=== PATIENT | female | born 1930 | race Caucasian/White ===

== ENCOUNTER 2017-08-20 16:55 | Emergency (ER) | payer MEDICARE, BC ==
--- NOTE | 2017-08-20 17:58 | EDM.PDOC ---
ED HPI GENERAL MEDICAL PROBLEM - General Chief Complaint: General Stated Complaint: right hip pain Time Seen by Provider: 08/20/17 17:30 Source of Information: Reports: Patient, EMS, RN History Limitations: Reports: No Limitations - History of Present Illness INITIAL COMMENTS - FREE TEXT/NARRATIVE: States that she was at the [facility] this afternoon and sat for about 2 hours without getting up. When she did get up she had pain in the back of her right leg. She had difficulty walking but did drive herself home and sat in her chair and then wasn't able to get out of chair. She called ambulance who brought her here to be evaluated. She was not able to move her right leg without increase in significant pain to the posterior medial thigh. No redness , warmth or swelling to the area. She denies any injury or slips. Was fine when she arrived at the [facility]. Onset: Sudden Location: Reports: Lower Extremity, Right Quality: Reports: Sharp Improves with: Reports: Rest Worsens with: Reports: Movement Associated Symptoms: Reports: No Other Symptoms - Related Data Allergies Allergy/AdvReac Type Severity Reaction Status Date / Time shellfish derived Allergy Rash Verified 08/20/17 17:05 Home Meds: Home Meds Aspirin [Esther Chewable Aspirin] 1 tab PO DAILY 07/23/14 [History] Simvastatin [Zocor] 10 mg PO DAILY 07/23/14 [History] Verapamil [Calan SR] 1 tab PO BEDTIME 07/23/14 [History] Past Medical History Cardiovascular History: Reports: Hypertension Social & Family History - Family History Family Medical History: Noncontributory - Tobacco Use Smoking Status *Q: Never Smoker - Living Situation & Occupation Living situation: Reports: , Alone Occupation: Retired ED ROS GENERAL - Review of Systems Review Of Systems: See Below Constitutional: Reports: No Symptoms HEENT: Reports: No Symptoms Respiratory: Reports: No Symptoms Cardiovascular: Reports: No Symptoms GI/Abdominal: Reports: No Symptoms : Reports: No Symptoms Musculoskeletal: Reports: Leg Pain Skin: Reports: No Symptoms Neurological: Reports: No Symptoms ED EXAM, GENERAL - Physical Exam Exam: See Below Exam Limited By: No Limitations General Appearance: Alert, WD/WN, Moderate Distress Respiratory/Chest: No Respiratory Distress, Lungs Clear, Normal Breath Sounds Cardiovascular: Regular Rate, Rhythm, No Edema Extremities: Normal Inspection, Normal Range of Motion, No Pedal Edema, Normal Capillary Refill, Leg Pain (in the posterior medial area. This does get worse with palpation of the area. With gentil ROM I'm able to go through full ROM with increase in pain only when hip is flexed and leg extended fully. Prior to that she wasn't able to move it at all without significant pain. We did get her up to stand and was able to but would have some pain to the posterior and medial aspect of her thigh depending on how she would stand on it and move. Pain did improve with massaging the area. She is now able to move it more with less pain than she was having previously. ). No: Limited Range of Motion, Increased Warmth, Mottled, Pallor, Redness Neurological: Alert, Oriented Skin Exam: Warm, Dry, Intact, Normal Color Course - Vital Signs Last Recorded V/S: Last Vital Signs Temp 97.6 F 08/20/17 17:11 Pulse 108 H 08/20/17 17:11 Resp 18 08/20/17 17:11 BP 159/96 H 08/20/17 17:11 Pulse Ox 96 08/20/17 17:11 - Orders/Labs/Meds Orders: Active Orders 24 hr Category Date Time Status Hip Min 2V or 3V w Pelvis Rt [CR] Stat Exams 08/20/17 16:59 Taken - Re-Assessments/Exams Free Text/Narrative Re-Assessment/Exam: 08/20/17 18:13 Biofreeze was applied and then did get up to bathroom with assist of walker. She did have difficulty being able to sit down on the stool due to the pain. Pain is less with passive ROM at this time. Departure - Departure Time of Disposition: 18:15 Disposition: Home, Self-Care 01 Condition: Good Clinical Impression: Muscle cramp - Discharge Information Referrals: Provider,Unknown [Primary Care Provider] - Additional Instructions: Will be discharged home as daughter will stay with her tonight Tylenol or advil as needed for discomfort Heating pad to the back of leg When sitting should get up and move around at least every hour to stretch. Recheck if pain returns or gets worse. - Problem List & Annotations (1) Muscle cramp SNOMED Code(s): 92853243 Code(s): R25.2 - CRAMP AND SPASM Status: Acute Priority: High Current Visit: Yes - Problem List Review Problem List Initiated/Reviewed/Updated: Yes - My Orders Last 24 Hours: My Active Orders 08/20/17 16:59 Hip Min 2V or 3V w Pelvis Rt [CR] Stat - Assessment/Plan Last 24 Hours: My Active Orders 08/20/17 16:59 Hip Min 2V or 3V w Pelvis Rt [CR] Stat
== END 2017-08-20 18:45 | disposition home or self-care (01) ==
LOC: CC.ED 16:55
DX: R25.2 Cramp and spasm (principal); M25.551 Pain in right hip; I10 Essential (primary) hypertension; Z79.899 Other long term (current) drug therapy; Z91.013 Allergy to seafood; Z79.82 Long term (current) use of aspirin
CPT/HCPCS: 99283

== ENCOUNTER 2018-11-23 09:37 | Inpatient (IN) | payer MEDICARE, BC ==
[2018-11-23 10:08] LABS: CHLORIDE,CL 104 mEq/L (98-106); SODIUM,NA 138 mEq/L (136-145)
[2018-11-23] MEDS ORDERED: Ondansetron 4 MG/2 ML SDV IV PRN (14:29)
[2018-11-23] MEDS ORDERED: Acetaminophen 325 MG Tab PO PRN (14:29)
[2018-11-23] MEDS ORDERED: Sodium Chloride 0.9% 10 ML Syringe FLUSH PRN (14:29)
[2018-11-23] MEDS: Verapamil 180 MG Tab.ER PO SCH (19:57)
[2018-11-23] MEDS ORDERED: Bisacodyl 5 MG Tab PO ONE (21:31)
[2018-11-23] MEDS ORDERED: Bisacodyl 5 MG Tab ONE (22:38)
[2018-11-24] MEDS: Multivitamin Tab PO SCH (07:20)
[2018-11-24] MEDS: Ferrous Sulfate 324 MG Tab.EC PO SCH (07:20)
[2018-11-24] MEDS: Simvastatin 10 MG Tab PO SCH (07:20)
[2018-11-24] MEDS: Pantoprazole 40 MG Vial IVPUSH SCH (07:20)
[2018-11-24 07:25] LABS: CHLORIDE,CL 106 mEq/L (98-106); SODIUM,NA 140 mEq/L (136-145)
[2018-11-24] MEDS ORDERED: Polyethylene Glycol 3350 Powder 238 GM Bot PO ONE (16:00)
[2018-11-24] MEDS: Verapamil 180 MG Tab.ER PO SCH (19:46)
[2018-11-24] MEDS ORDERED: Bisacodyl 5 MG Tab PO ONE (20:00)
--- NOTE | 2018-11-24 21:03 | PCM.PN ---
- General Info Date of Service: 11/24/18 Admission Dx/Problem (Free Text): Lower GI Bleed Functional Status: Reports: Pain Controlled, Tolerating Diet, Ambulating - Review of Systems General: Reports: Weakness, Malaise. Denies: Fever, Fatigue HEENT: Reports: No Symptoms Pulmonary: Denies: Shortness of Breath, Cough Cardiovascular: Denies: Chest Pain, Edema, Lightheadedness Gastrointestinal: Reports: Abdominal Pain, Diarrhea. Denies: Hematochezia, Nausea, Vomiting Genitourinary: Reports: No Symptoms Musculoskeletal: Reports: No Symptoms Skin: Reports: No Symptoms Neurological: Reports: No Symptoms - Patient Data Vitals - Most Recent: Last Vital Signs Temp 99.3 F 11/24/18 16:00 Pulse 73 11/24/18 16:00 Resp 20 11/24/18 16:00 BP 145/67 H 11/24/18 16:00 Pulse Ox 93 L 11/24/18 16:00 Weight - Most Recent: 192 lb 14.4 oz Lab Results Last 24 Hours: Laboratory Results - last 24 hr 11/24/18 11/24/18 Range/Units 07:00 07:00 WBC 6.7 (5.0-10.0) 10^3/uL RBC 4.61 (4.00-5.50) 10^6/uL Hgb 14.7 (12.0-16.0) g/dL Hct 43.7 (37.0-47.0) % MCV 94.8 H (82.0-94.0) fL MCH 31.9 (27.0-32.0) pg MCHC 33.6 (33.0-38.0) g/dL RDW Coeff of Mini 13.9 (11.0-15.0) % Plt Count 204 (150-400) 10^3/uL Neut % (Auto) 68.7 (35-85) % Lymph % (Auto) 16.2 (10-55) % [place] % (Auto) 12.6 (0-16) % Eos % (Auto) 1.9 (0-5) % Baso % (Auto) 0.6 (0-3) % Neut # (Auto) 4.61 (1.80-7.00) 10^3/uL Lymph # (Auto) 1.09 (1.00-4.80) 10^3/uL [place] # (Auto) 0.85 H (0.00-0.80) 10^3/uL Eos # (Auto) 0.13 (0.00-0.45) 10^3/uL Baso # (Auto) 0.04 10^3/uL Sodium 140 (136-145) mEq/L Potassium 3.9 (3.5-5.0) mEq/L Chloride 106 (98-106) mEq/L Carbon Dioxide 27 (21-32) mmol/L BUN 11 (7-18) mg/dL Creatinine 0.8 (0.6-1.0) mg/dL Est Cr Clr Drug Dosing 43.59 mL/min Estimated GFR (MDRD) > 60 (>=60) mL/min Glucose 90 (75-99) mg/dL Calcium 9.2 (8.4-10.1) mg/dL Zan Results Last 24 Hours: Microbiology 11/23/18 14:33 Urine Culture - Preliminary Urine, Voided NO GROWTH AFTER 1 DAY Med Orders - Current: Current Medications Acetaminophen (Tylenol) 650 mg PO Q4H PRN PRN Reason: Pain (Mild 1-3)/fever Last Admin: 11/23/18 19:57 Dose: 650 mg Ferrous Sulfate (Ferrous Sulfate) 324 mg PO DAILY [facility] Last Admin: 11/24/18 07:20 Dose: 324 mg Lactated Ringer's (Ringers, Lactated) 1,000 mls @ 125 mls/hr IV ASDIRECTED [facility] Multivitamins/Minerals/Vitamin C (Tab-A-Maninder) 1 tab PO DAILY [facility] Last Admin: 11/24/18 07:20 Dose: 1 tab Ondansetron HCl (Zofran) 4 mg IV Q6H PRN PRN Reason: Nausea/Vomiting Pantoprazole Sodium (Protonix Iv) 40 mg IVPUSH QAM [facility] Last Admin: 11/24/18 07:20 Dose: 40 mg Simvastatin (Zocor) 10 mg PO DAILY [facility] Last Admin: 11/24/18 07:20 Dose: 10 mg Sodium Chloride (Saline Flush) 10 ml FLUSH ASDIRECTED PRN PRN Reason: Keep Vein Open Verapamil HCl (Calan Sr) 180 mg PO BEDTIME [facility] Last Admin: 11/24/18 19:46 Dose: 180 mg Discontinued Medications Bisacodyl (Dulcolax) 10 mg PO ONETIME ONE Stop: 11/23/18 21:32 Last Admin: 11/23/18 22:26 Dose: 10 mg Bisacodyl (Dulcolax) Confirm Administered Dose 5 mg .ROUTE .STK-MED ONE Stop: 11/23/18 22:39 Last Admin: 11/23/18 23:17 Dose: Not Given Bisacodyl (Dulcolax) 10 mg PO ONETIME ONE Stop: 11/24/18 20:01 Last Admin: 11/24/18 19:46 Dose: 10 mg Polyethylene Glycol (Miralax) 238 gm PO 1600 ONE Stop: 11/24/18 16:01 Last Admin: 11/24/18 16:04 Dose: 238 gram - Exam General: Alert, Oriented HEENT: Mucous Membr. Moist/[place] Lungs: Clear to Auscultation, Normal Respiratory Effort Cardiovascular: Regular Rate, Regular Rhythm GI/Abdominal Exam: Normal Bowel Sounds, Soft, Non-Tender Extremities: Normal Inspection, No Pedal Edema Skin: Warm, Dry Neurological: No New Focal Deficit - Problem List & Annotations (1) Bright red blood per rectum SNOMED Code(s): 79260517 Code(s): K62.5 - HEMORRHAGE OF ANUS AND RECTUM Status: Acute Priority: High Current Visit: Yes - Problem List Review Problem List Initiated/Reviewed/Updated: Yes - Assessment Assessment:: Lower GI Bleed/Bright Red Blood Per Rectum - Plan Plan:: Patient was admitted with bright red blood per rectum. Had been experiencing diarrhea for 2 days, noted blood in stools day of admit. Had mild abdominal discomfort. States has mild abdominal cramping prior to loose stools. Has not noted any blood herself since admit but has continued to have frequent loose stools since 4 am. Was given Dulcolax tabs last evening. Afebrile this am. Patient does have concerns about proceeding with colonoscopy due to age. Given explanation on to reasons for procedure related to finding source of bleeding, ie. hemorrhoid, colitis, polyp or mass, etc. Blood pressure has been stable. Abdomen is soft, mildly tender to lower quads. WBC 6.7. P8 normal. CRP negative. Continue with IV fluids. Prep for colonoscopy with Dr. Suarez tomorrow am.
[2018-11-25] MEDS ORDERED: Lactated Ringers 1,000 ML IV SCH (06:00)
[2018-11-25] MEDS ORDERED: Meperidine PF 50 MG/ML Syringe IV ONE (07:00)
[2018-11-25] MEDS ORDERED: Midazolam 1 MG/ML 2 ML SDV IV ONE (07:00)
[2018-11-25] MEDS: Multivitamin Tab PO SCH (09:52)
[2018-11-25] MEDS: Simvastatin 10 MG Tab PO SCH (09:52)
[2018-11-25] MEDS: Pantoprazole 40 MG Vial IVPUSH SCH (09:52)
[2018-11-25] MEDS: Ferrous Sulfate 324 MG Tab.EC PO SCH (09:52)
--- NOTE | 2018-11-25 20:37 | PCM.DCSUM1 ---
Discharge Summary - Hospital Course Free Text/Narrative:: Patient presented to clinic to see Mira Loza with 2 day history of diarrhea. She stated she had 2 days of loose stools and then started noting bright red blood. [place] dehydrated. Had not been eating or drinking well enough. No fevers. Mild abdominal cramping, especially prior to stools. Work up done in clinic. WBC 8.7, electrolytes normal with potassium at 3.7. BUN 14. CRP negative. Urine shows occasional bacteria. Culture ordered. Admitted for IV fluids, monitoring with consideration for colonoscopy. Diagnosis: Stroke: No Modified Singh Scale: No Symptoms at All Modified [place] Scale Score: 0 - Discharge Data Discharge Date: 11/25/18 Discharge Disposition: Home, Self-Care 01 Condition: Good - Discharge Diagnosis/Problem(s) (1) Bright red blood per rectum SNOMED Code(s): 41252759 ICD Code: K62.5 - HEMORRHAGE OF ANUS AND RECTUM Status: Acute Priority: High - Patient Summary/Data Complications: none Consults: Consultations 11/23/18 14:35 Consult to Physician [CONS] Routine Hospital Course: Patient doing well. She is ambulating with walker, feels steady. Had episodes of blood in stool prior to admission, none since. Continued to have diarrhea on admit day and continued due to prep needed for colonoscopy. Scope done today which did show colitis, biopsies obtained. lab work has remained stable, WBC today 7.9., electrolytes remain normal. Urine culture was negative. Advanced diet and patient tolerated well. Not currently having loose stools, is passing flatus following the colonoscopy. Will discharge home. See April Kovacs next week for hospital follow up and pathology report. - Patient Instructions Diet: Usual Diet as Tolerated Activity: As Tolerated - Discharge Plan *PRESCRIPTION DRUG MONITORING PROGRAM REVIEWED*: No *COPY OF PRESCRIPTION DRUG MONITORING REPORT IN PATIENT ILDA: No Home Medications: Home Meds Aspirin [Esther Chewable Aspirin] 1 tab PO DAILY 07/23/14 [History] Simvastatin [Zocor] 10 mg PO DAILY 07/23/14 [History] Verapamil [Calan SR] 1 tab PO BEDTIME 07/23/14 [History] Ferrous Sulfate [Iron] 325 mg PO DAILY 11/23/18 [History] Multivitamin [Daily Maninder] 1 tab PO DAILY 11/23/18 [History] Patient Handouts: Colitis Referrals: April Kovacs PA-C [Primary Care Provider] - (Follow up with April Kovacs on Thursday for recheck/pathology results) - Discharge Summary/Plan Comment DC Time >30 min.: No - General Info Date of Service: 11/25/18 Admission Dx/Problem (Free Text: Lower GI Bleed Functional Status: Reports: Pain Controlled, Tolerating Diet, Ambulating - Review of Systems General: Reports: Weakness, Fatigue. Denies: Fever, Malaise, Chills HEENT: Reports: No Symptoms Pulmonary: Denies: Shortness of Breath, Cough Cardiovascular: Denies: Chest Pain, Edema, Lightheadedness Gastrointestinal: Reports: Diarrhea. Denies: Abdominal Pain, Nausea, Vomiting Genitourinary: Reports: No Symptoms Musculoskeletal: Reports: No Symptoms Skin: Reports: No Symptoms Neurological: Reports: No Symptoms - Patient Data Vitals - Most Recent: Last Vital Signs Temp 98.2 F 11/25/18 11:45 Pulse 66 11/25/18 11:45 Resp 16 11/25/18 11:45 BP 134/72 11/25/18 11:45 Pulse Ox 95 11/25/18 11:45 Weight - Most Recent: 192 lb 14.4 oz Lab Results - Last 24 hrs: Laboratory Results - last 24 hr 11/25/18 11/25/18 Range/Units 06:45 06:45 WBC 7.9 (5.0-10.0) 10^3/uL RBC 4.74 (4.00-5.50) 10^6/uL Hgb 15.0 (12.0-16.0) g/dL Hct 45.0 (37.0-47.0) % MCV 94.9 H (82.0-94.0) fL MCH 31.6 (27.0-32.0) pg MCHC 33.3 (33.0-38.0) g/dL RDW Coeff of Mini 14.1 (11.0-15.0) % Plt Count 211 (150-400) 10^3/uL Neut % (Auto) 67.9 (35-85) % Lymph % (Auto) 17.9 (10-55) % [place] % (Auto) 10.6 (0-16) % Eos % (Auto) 3.2 (0-5) % Baso % (Auto) 0.4 (0-3) % Neut # (Auto) 5.34 (1.80-7.00) 10^3/uL Lymph # (Auto) 1.41 (1.00-4.80) 10^3/uL [place] # (Auto) 0.83 H (0.00-0.80) 10^3/uL Eos # (Auto) 0.25 (0.00-0.45) 10^3/uL Baso # (Auto) 0.03 10^3/uL Sodium 139 (136-145) mEq/L Potassium 3.7 (3.5-5.0) mEq/L Chloride 105 (98-106) mEq/L Carbon Dioxide 24 (21-32) mmol/L BUN 9 (7-18) mg/dL Creatinine 0.9 (0.6-1.0) mg/dL Est Cr Clr Drug Dosing 38.75 mL/min Estimated GFR (MDRD) 59 L (>=60) mL/min Glucose 103 H (75-99) mg/dL Calcium 9.3 (8.4-10.1) mg/dL SHANNAN Results - Last 24 hrs: Microbiology 11/23/18 14:33 Urine Culture - Final Urine, Voided Med Orders - Current: Current Medications Discontinued Medications Acetaminophen (Tylenol) 650 mg PO Q4H PRN PRN Reason: Pain (Mild 1-3)/fever Last Admin: 11/23/18 19:57 Dose: 650 mg Bisacodyl (Dulcolax) 10 mg PO ONETIME ONE Stop: 11/23/18 21:32 Last Admin: 11/23/18 22:26 Dose: 10 mg Bisacodyl (Dulcolax) Confirm Administered Dose 5 mg .ROUTE .STK-MED ONE Stop: 11/23/18 22:39 Last Admin: 11/23/18 23:17 Dose: Not Given Bisacodyl (Dulcolax) 10 mg PO ONETIME ONE Stop: 11/24/18 20:01 Last Admin: 11/24/18 19:46 Dose: 10 mg Ferrous Sulfate (Ferrous Sulfate) 324 mg PO DAILY [facility] Last Admin: 11/25/18 09:52 Dose: 324 mg Lactated Ringer's (Ringers, Lactated) 1,000 mls @ 125 mls/hr IV ASDIRECTED [facility] Last Admin: 11/25/18 06:22 Dose: 125 mls/hr Meperidine HCl (Demerol) 50 mg IV .STK-MED ONE Stop: 11/25/18 07:01 Last Admin: 11/25/18 07:00 Dose: 50 mg Midazolam HCl (Versed 1 Mg/Ml) 6 mg IV .STK-MED ONE Stop: 11/25/18 07:01 Last Admin: 11/25/18 07:00 Dose: 6 mg Multivitamins/Minerals/Vitamin C (Tab-A-Maninder) 1 tab PO DAILY [facility] Last Admin: 11/25/18 09:52 Dose: 1 tab Ondansetron HCl (Zofran) 4 mg IV Q6H PRN PRN Reason: Nausea/Vomiting Pantoprazole Sodium (Protonix Iv) 40 mg IVPUSH QAM [facility] Last Admin: 11/25/18 09:52 Dose: 40 mg Polyethylene Glycol (Miralax) 238 gm PO 1600 ONE Stop: 11/24/18 16:01 Last Admin: 11/24/18 16:04 Dose: 238 gram Simvastatin (Zocor) 10 mg PO DAILY [facility] Last Admin: 11/25/18 09:52 Dose: Not Given Sodium Chloride (Saline Flush) 10 ml FLUSH ASDIRECTED PRN PRN Reason: Keep Vein Open Verapamil HCl (Calan Sr) 180 mg PO BEDTIME [facility] Last Admin: 11/24/18 19:46 Dose: 180 mg - Exam General: Reports: Alert, Oriented HEENT: Reports: Mucous Membr. Moist/[place]: Reports: Supple Lungs: Reports: Clear to Auscultation, Normal Respiratory Effort Cardiovascular: Reports: Regular Rate, Regular Rhythm GI/Abdominal Exam: Normal Bowel Sounds, Soft, Non-Tender Extremities: Normal Inspection, No Pedal Edema Skin: Reports: Warm, Dry Neurological: Reports: No New Focal Deficit
--- NOTE | 2018-11-26 08:41 | OR ---
DATE OF OPERATION: 11/25/2018 PREOPERATIVE DIAGNOSIS: HEMATOCHEZIA. POSTOPERATIVE DIAGNOSIS: LEFT-SIDED COLITIS. SURGEON: Shelton Suarez MD PROCEDURE: FULL-LENGTH COLONOSCOPY WITH BIOPSIES X5, POLYP REMOVAL X1. ANESTHESIA: Conscious sedation with 6 mg Versed and 50 mg of Demerol with continuous O2 saturation monitoring and nurse assist. Oxygen saturations remained above 97% for the entire procedure. COMPLICATIONS: None. SPECIMEN: 1. Colon biopsies x5, from the splenic flexure, two proximal sigmoid. 2. Small tubular adenoma, mid sigmoid colon. FINDINGS: 1. Full-length colonoscopy. 2. Nonspecific and mild colitis left colon from splenic flexure, proximal sigmoid without active bleeding. 3. Moderate sigmoid diverticulosis. 4. Tubular adenoma mid sigmoid colon. RECOMMENDATIONS: Ongoing medical care with followup pending path reports. INDICATIONS: The patient presented with lower GI bleed with hematochezia for a day. She stabilized in the hospital. We elected to proceed with diagnostic colonoscopy. DESCRIPTION OF PROCEDURE: The patient was prepped and draped, placed in the left lateral decubitus position. A lubricated Olympus colonoscope was inserted and with relative ease advanced up to the hepatic flexure. At that point, the patient had a fair amount of stool, was very intolerant of the scope, we will likely visualize the site of bleeding, will like to stop at that point. Upon withdrawal, the transverse colon was benign until just past the splenic flexure, extending from the splenic flexure, down to the proximal sigmoid area. Patient had diffuse colitis was mild without any tien ulcerations. There was no active bleeding. This was not full circumferential colitis, but skip areas from the splenic flexure, down in the proximal sigmoid. We did do a total 5 biopsies from the splenic flexure, down to the proximal sigmoid and to the sigmoid colon and all way to the rectosigmoid junction, the patient has very prominent diverticulosis. There was no obvious active signs of diverticulitis. At about 50 cm in the mid sigmoid colon, the patient had a small stalked tubular adenoma, we elected removal with two cold forceps biopsies, we did remove it in its entirety. There was no signs of any active bleeding throughout the entire colon, most notably in the sigmoid. There were no further inflammatory changes throughout the sigmoid and rectosigmoid junction. The rectal vault was benign. Retroflexion scope in the rectum showed no anal lesions. Air was suctioned. Scope was removed without complication. RENAE/CHICHI /[id number]
== END 2018-11-25 14:20 | disposition home or self-care (01) | DRG 391 ==
LOC: CC.FCMC 09:37 → CC.MS 09:37 → UNDOADMIN 10:31 → CC.MS 14:29
PROVIDERS: ADMIT Nurse Practitioner Family; ATTEND Family Medicine
PROC: 0DBN8ZX Excision of Sigmoid Colon, Via Natural or Artificial Opening Endoscopic, Diagnostic (ICD-10-PCS; principal; 2018-11-25)
DX: K52.9 Noninfective gastroenteritis and colitis, unspecified (principal); K57.31 Diverticulosis of large intestine without perforation or abscess with bleeding; E86.0 Dehydration; Z90.49 Acquired absence of other specified parts of digestive tract; I10 Essential (primary) hypertension; D12.5 Benign neoplasm of sigmoid colon
CPT/HCPCS: 36415; 80048; 81001; 85025; 86140; 87086; 93005; A9270-GY; C9113; J2175; J2250; J7120

== ENCOUNTER 2020-01-18 06:55 | Emergency (ER) | payer MEDICARE, BC ==
[2020-01-18 08:20] LABS: CHLORIDE,CL 101 mEq/L (98-106); SODIUM,NA 137 mEq/L (136-145)
--- NOTE | 2020-01-19 15:19 | EDM.PDOC ---
ED HPI GENERAL MEDICAL PROBLEM - General Chief Complaint: Gastrointestinal Problem Stated Complaint: diarrhea Time Seen by Provider: 01/18/20 07:30 Source of Information: Reports: Patient History Limitations: Reports: No Limitations - History of Present Illness INITIAL COMMENTS - FREE TEXT/NARRATIVE: Pt states that she didn't feel right. She thinks that she has a colon infect ion as she has had some mucus in her stools the last 2 days. NO fever or chills. NO changes in appetite. NO vomiting. Had 2 stools yesterday that had mucus in them but no blood noted. Also concerned that when she took her BP last night and this AM it was higher than normal. As it was in th 150's/ over 90. She denies any headache or dizziness with it. She questions if she may be allergic to or reacting to a new cracker/cookie her daughter brought for her called Belvita that was coconut flavored. Denies any headaches or dizziness. Onset: Gradual Location: Reports: Abdomen - Related Data Allergies Allergy/AdvReac Type Severity Reaction Status Date / Time shellfish derived Allergy Rash Verified 01/18/20 08:18 Home Meds: Home Meds Aspirin [Esther Chewable Aspirin] 1 tab PO DAILY 07/23/14 [History] Simvastatin [Zocor] 10 mg PO ASDIRECTED 07/23/14 [History] Verapamil [Calan SR] 1 tab PO BEDTIME 07/23/14 [History] Ferrous Sulfate [Iron] 325 mg PO DAILY 11/23/18 [History] Multivitamin [Daily Maninder] 1 tab PO DAILY 11/23/18 [History] Past Medical History Cardiovascular History: Reports: High Cholesterol, Hypertension Gastrointestinal History: Reports: GI Bleed Neurological History: Reports: TIA - Past Surgical History GI Surgical History: Reports: Appendectomy Social & Family History - Family History Family Medical History: Noncontributory - Tobacco Use Smoking Status *Q: Never Smoker - Caffeine Use Caffeine Use: Reports: None - Living Situation & Occupation Living situation: Reports: , Alone Occupation: Retired ED ROS GENERAL - Review of Systems Review Of Systems: See Below Constitutional: Reports: Weakness. Denies: Fever, Chills HEENT: Reports: No Symptoms Respiratory: Reports: No Symptoms Cardiovascular: Reports: No Symptoms GI/Abdominal: Reports: Abdominal Pain, Diarrhea. Denies: Black Stool, Bloody Stool, Nausea, Vomiting : Reports: No Symptoms Musculoskeletal: Reports: No Symptoms Neurological: Denies: Dizziness, Headache, Numbness ED EXAM, GI/ABD - Physical Exam Exam: See Below Exam Limited By: No Limitations General Appearance: Alert, WD/WN, No Apparent Distress Ears: Normal External Exam, Normal Canal, Normal TMs Throat/Mouth: Normal Inspection, Normal Oropharynx Head: Atraumatic Neck: Normal Inspection Respiratory/Chest: No Respiratory Distress, Lungs Clear Cardiovascular: Regular Rate, Rhythm, No Edema GI/Abdominal Exam: Normal Bowel Sounds, Soft, Non-Tender Extremities: Normal Inspection, No Pedal Edema, Normal Capillary Refill Neurological: Alert, Oriented Skin Exam: Warm, Dry, Intact Course - Vital Signs Last Recorded V/S: Last Vital Signs Temp 98.3 F 01/18/20 07:35 Pulse 80 01/18/20 08:00 Resp 18 01/18/20 08:00 BP 152/66 H 01/18/20 08:00 Pulse Ox 80 L 01/18/20 08:00 - Orders/Labs/Meds Labs: Laboratory Tests 01/18/20 01/18/20 01/18/20 Range/Units 07:45 07:45 07:45 WBC 6.6 (5.0-10.0) 10^3/uL RBC 4.85 (4.00-5.50) 10^6/uL Hgb 15.4 (12.0-16.0) g/dL Hct 46.2 (37.0-47.0) % MCV 95.3 H (82.0-94.0) fL MCH 31.8 (27.0-32.0) pg MCHC 33.3 (33.0-38.0) g/dL RDW Coeff of Mini 13.9 (11.0-15.0) % Plt Count 245 (150-400) 10^3/uL Neut % (Auto) 59.1 (35-85) % Lymph % (Auto) 25.9 (10-55) % [place] % (Auto) 12.7 (0-16) % Eos % (Auto) 1.8 (0-5) % Baso % (Auto) 0.5 (0-3) % Neut # (Auto) 3.93 (1.80-7.00) 10^3/uL Lymph # (Auto) 1.72 (1.00-4.80) 10^3/uL [place] # (Auto) 0.84 H (0.00-0.80) 10^3/uL Eos # (Auto) 0.12 (0.00-0.45) 10^3/uL Baso # (Auto) 0.03 10^3/uL Sodium 137 (136-145) mEq/L Potassium 3.8 (3.5-5.0) mEq/L Chloride 101 (98-106) mEq/L Carbon Dioxide 24 (21-32) mmol/L BUN 12 (7-18) mg/dL Creatinine 0.9 (0.6-1.0) mg/dL Est Cr Clr Drug Dosing TNP Estimated GFR (MDRD) 59 L (>=60) mL/min Glucose 107 H (75-99) mg/dL Calcium 9.7 (8.4-10.1) mg/dL Total Bilirubin 0.4 (0.0-1.0) mg/dL AST 18 (15-37) U/L ALT 23 (12-78) U/L Alkaline Phosphatase 64 (46-116) U/L Lactate Dehydrogenase 161 (100-190) U/L Creatine Kinase 110 (21-215) U/L Troponin I 0.001 (0.00-0.06) ng/mL Total Protein 7.6 (6.4-8.2) g/dL Albumin 3.9 (3.4-5.0) g/dL Urine Color Light yellow (YELLOW) Urine Appearance Clear (CLEAR) Urine pH 6.5 (4.5-8.0) Ur Specific [place] 1.010 (1.003-1.020) Urine Protein Negative (NEGATIVE) mg/dL Urine Glucose (UA) Negative (NEGATIVE) mg/dL Urine Ketones Negative (NEGATIVE) mg/dL Urine Occult Blood Trace-lysed H (NEGATIVE) Urine Nitrite Negative (NEGATIVE) Urine Bilirubin Negative (NEGATIVE) Urine Urobilinogen 0.2 (0.2-1.0) EU/dL Ur Leukocyte Esterase Trace H (NEGATIVE) Urine RBC Not seen (0-5) /HPF Urine WBC 0-5 (0-5) /HPF Ur Epithelial Cells Moderate H (NOT SEEN) /HPF - Re-Assessments/Exams Free Text/Narrative Re-Assessment/Exam: 01/18/20 0810 Discussed normal labs including CBC and hgb. I feel this is more GE and does not need antibiotics at this time. Discussed that BP med may need to be increased. She does not agree to do that at this time as she states that sometimes she checks it and it in low in the 110's/ and she feels a little lightheaded. She is also not interested in updating her med as she states that it has been working for her and she wants to continue on it. Departure - Departure Time of Disposition: 08:15 Disposition: Home, Self-Care 01 Condition: Good Clinical Impression: Gastroenteritis - Discharge Information *PRESCRIPTION DRUG MONITORING PROGRAM REVIEWED*: Not Applicable *COPY OF PRESCRIPTION DRUG MONITORING REPORT IN PATIENT ILDA: Not Applicable Referrals: April Kovacs PA-C [Primary Care Provider] - Forms: ED Department Discharge Additional Instructions: see downtime instructions - Problem List & Annotations (1) Gastroenteritis SNOMED Code(s): 94673213 Code(s): K52.9 - NONINFECTIVE GASTROENTERITIS AND COLITIS, UNSPECIFIED Status: Acute - Problem List Review Problem List Initiated/Reviewed/Updated: Yes
== END 2020-01-18 08:20 | disposition home or self-care (01) ==
LOC: CC.ED 06:55
DX: K52.9 Noninfective gastroenteritis and colitis, unspecified (principal); I10 Essential (primary) hypertension; E78.00 Pure hypercholesterolemia, unspecified; Z90.49 Acquired absence of other specified parts of digestive tract; Z79.899 Other long term (current) drug therapy; Z91.013 Allergy to seafood; Z79.82 Long term (current) use of aspirin
CPT/HCPCS: 36415; 80053; 81001; 82550; 83615; 84484; 85025; 93005; 93010; 99284-25

== ENCOUNTER 2020-11-06 01:30 | Observation (INO) | payer MEDICARE, BC ==
--- NOTE | 2020-11-06 02:01 | EDM.PDOC ---
ED HPI GENERAL MEDICAL PROBLEM - General Chief Complaint: General Stated Complaint: weak and shaking Time Seen by Provider: 11/06/20 01:59 Source of Information: Reports: Patient History Limitations: Reports: No Limitations - History of Present Illness INITIAL COMMENTS - FREE TEXT/NARRATIVE: April is a pleasant 89 yo female who presents to the ED with c/o feeling weak and shaky. She reports starting at about 6 pm this evening she started to feel shaky. Also reports generalized weakness. She does report she was in to see her PCP April Kovacs on Thursday and BP was elevated. She was started on lisinopril. Reports she has taken 4 doses. Was feeling ok prior to this evening. She does admit she is a "nervous wreck." She is very worried about her BP being elevated and having a stroke. She has no focal neurologic deficit. Does have occasional chills. She denies any other symptoms. Denies any chest pain, shortness of breath, nausea, vomiting, diarrhea, urinary symptoms, dizziness. Onset Date: 11/05/20 Onset Time: 18:00 Duration: Getting Worse Location: Reports: Generalized (shaking) Associated Symptoms: Reports: Weakness. Denies: Confusion, Chest Pain, Cough, cough w sputum, Diaphoresis, Fever/Chills, Headaches, Loss of Appetite, Malaise, Nausea/Vomiting, Rash, Seizure, Shortness of Breath, Syncope - Related Data Allergies Allergy/AdvReac Type Severity Reaction Status Date / Time shellfish derived Allergy Rash Verified 11/06/20 01:39 Home Meds: Home Meds Aspirin [Esther Chewable Aspirin] 1 tab PO DAILY 07/23/14 [History] Simvastatin [Zocor] 10 mg PO ASDIRECTED 07/23/14 [History] Verapamil [Calan SR] 1 tab PO BEDTIME 07/23/14 [History] Ferrous Sulfate [Iron] 325 mg PO DAILY 11/23/18 [History] Multivitamin [Daily Maninder] 1 tab PO DAILY 11/23/18 [History] Losartan [Cozaar] 25 mg PO DAILY #30 tablet 11/06/20 [Rx] Past Medical History Cardiovascular History: Reports: High Cholesterol, Hypertension Gastrointestinal History: Reports: GI Bleed Neurological History: Reports: TIA - Past Surgical History GI Surgical History: Reports: Appendectomy Social & Family History - Family History Family Medical History: No Pertinent Family History - Caffeine Use Caffeine Use: Reports: None - Living Situation & Occupation Living situation: Reports: , Alone Occupation: Retired ED ROS GENERAL - Review of Systems Review Of Systems: Comprehensive ROS is negative, except as noted in HPI. ED EXAM, GENERAL - Physical Exam Exam: See Below Exam Limited By: No Limitations General Appearance: Alert, WD/WN, No Apparent Distress, Anxious Eye Exam: Bilateral Eye: EOMI, Normal Fundi, Normal Inspection, PERRL Head: Atraumatic, Normocephalic Neck: Normal Inspection, Supple, Non-Tender, Full Range of Motion Respiratory/Chest: No Respiratory Distress, Lungs Clear, Normal Breath Sounds, No Accessory Muscle Use, Chest Non-Tender Cardiovascular: Normal Peripheral Pulses, Regular Rate, Rhythm, No Edema, No Gallop, No JVD, No Murmur, No Rub GI/Abdominal: Normal Bowel Sounds, Soft, Non-Tender, No Organomegaly, No Distention, No Abnormal Bruit, No Mass Back Exam: Normal Inspection, Full Range of Motion, NT Extremities: Normal Inspection, Normal Range of Motion, Non-Tender, Normal Capillary Refill, No Pedal Edema Neurological: Alert, Oriented, CN II-XII Intact, Normal Cognition, Normal Gait, Normal Reflexes, No Motor/Sensory Deficits Psychiatric: Anxious, Tearful (at times) Skin Exam: Warm, Dry, Intact, Normal Color, No Rash Lymphatic: No Adenopathy Course - Vital Signs Last Recorded V/S: Last Vital Signs Temp 98 F 11/06/20 08:00 Pulse 89 11/06/20 08:00 Resp 18 11/06/20 08:00 BP 138/78 11/06/20 08:00 Pulse Ox 95 11/06/20 08:00 - Orders/Labs/Meds Labs: Laboratory Tests 11/06/20 11/06/20 11/06/20 Range/Units 01:38 01:38 02:02 WBC 6.6 (5.0-10.0) 10^3/uL RBC 5.09 (4.00-5.50) 10^6/uL Hgb 16.6 H (12.0-16.0) g/dL Hct 49.3 H (37.0-47.0) % MCV 96.9 H (82.0-94.0) fL MCH 32.6 H (27.0-32.0) pg MCHC 33.7 (33.0-38.0) g/dL RDW Coeff of Mini 13.8 (11.0-15.0) % Plt Count 221 (150-400) 10^3/uL Neut % (Auto) 53.2 (35-85) % Lymph % (Auto) 30.5 (10-55) % [place] % (Auto) 13.9 (0-16) % Eos % (Auto) 2.1 (0-5) % Baso % (Auto) 0.3 (0-3) % Neut # (Auto) 3.49 (1.80-7.00) 10^3/uL Lymph # (Auto) 2.00 (1.00-4.80) 10^3/uL [place] # (Auto) 0.91 H (0.00-0.80) 10^3/uL Eos # (Auto) 0.14 (0.00-0.45) 10^3/uL Baso # (Auto) 0.02 10^3/uL Sodium 141 (136-145) mEq/L Potassium 3.9 (3.5-5.0) mEq/L Chloride 102 (98-106) mEq/L Carbon Dioxide 25 (21-32) mmol/L BUN 15 (7-18) mg/dL Creatinine 1.0 (0.6-1.0) mg/dL Est Cr Clr Drug Dosing 31.35 mL/min Estimated GFR (MDRD) 52 L (>=60) mL/min Glucose 120 H (75-99) mg/dL Calcium 10.0 (8.4-10.1) mg/dL Total Bilirubin 0.3 (0.0-1.0) mg/dL AST 18 (15-37) U/L ALT 31 (12-78) U/L Alkaline Phosphatase 76 (46-116) U/L Total Protein 8.3 H (6.4-8.2) g/dL Albumin 4.3 (3.4-5.0) g/dL Urine Color Yellow (YELLOW) Urine Appearance Clear (CLEAR) Urine pH 6.5 (4.5-8.0) Ur Specific [place] 1.010 (1.003-1.020) Urine Protein Negative (NEGATIVE) mg/dL Urine Glucose (UA) Negative (NEGATIVE) mg/dL Urine Ketones Negative (NEGATIVE) mg/dL Urine Occult Blood Trace-intact H (NEGATIVE) Urine Nitrite Negative (NEGATIVE) Urine Bilirubin Negative (NEGATIVE) Urine Urobilinogen 0.2 (0.2-1.0) EU/dL Ur Leukocyte Esterase Trace H (NEGATIVE) Urine RBC 0-5 (0-5) /HPF Urine WBC 0-5 (0-5) /HPF Ur Epithelial Cells Few H (NOT SEEN) /HPF Urine Bacteria Few H (NOT SEEN) /HPF Meds: Medications Discontinued Medications Generic Name Dose Route Start Last Admin Trade Name Freq PRN Reason Stop Dose Admin Acetaminophen 650 mg 11/06/20 02:54 Acetaminophen 325 Mg Tab PO Q4H PRN Pain (Mild 1-3)/fever Aspirin 81 mg 11/06/20 08:00 11/06/20 08:42 Aspirin 81 Mg Tab.Chew PO 81 mg DAILY GERRY Administration Clonidine HCl 0.1 mg 11/06/20 02:17 11/06/20 02:20 Clonidine 0.1 Mg Tab PO 11/06/20 02:18 0.1 mg STAT STA Administration Enoxaparin Sodium 40 mg 11/06/20 20:00 Enoxaparin 40 Mg/0.4 Ml Syringe SUBCUT BEDTIME GERRY Lorazepam 1 mg 11/06/20 02:54 Lorazepam 2 Mg/Ml Syringe IVPUSH Q6H PRN Anxiety Losartan Potassium 25 mg 11/06/20 12:00 Losartan 25 Mg Tab PO DAILY GERRY Metoprolol Tartrate 2.5 mg 11/06/20 02:54 Metoprolol Tartrate 5 Mg/5 Ml Sdv IVPUSH Q4H PRN Hypertension Multivitamins/Minerals/Vitamin C 1 tab 11/07/20 08:00 Multivitamin Tab PO DAILY GERRY Sodium Chloride 10 ml 11/06/20 02:54 Sodium Chloride 0.9% 10 Ml Syringe FLUSH ASDIRECTED PRN Keep Vein Open Verapamil HCl 180 mg 11/06/20 20:00 Verapamil 180 Mg Tab.Er Pt Own PO BEDTIME GERRY Departure - Departure Time of Disposition: 02:32 Disposition: Refer to Observation Condition: Good Clinical Impression: Hypertensive urgency Adverse reaction to DREW inhibitor drug Qualifiers: Encounter type: initial encounter Qualified Code(s): T46.4X5A - Adverse effect of ankrzxdwzua-klgnfdsolz-fhdhzy inhibitors, initial encounter - Discharge Information *PRESCRIPTION DRUG MONITORING PROGRAM REVIEWED*: Not Applicable *COPY OF PRESCRIPTION DRUG MONITORING REPORT IN PATIENT ILDA: Not Applicable Sepsis Event Note (ED) - Evaluation Sepsis Screening Result: No Definite Risk - Focused Exam Vital Signs: Vital Signs Temp Pulse Resp BP BP Pulse Ox 11/06/20 02:27 79 181/98 H 95 11/06/20 02:20 179/97 H 11/06/20 01:59 97.5 F 74 16 179/97 H 96 11/06/20 01:35 74 179/86 H 11/06/20 01:30 97 F 81 18 154/92 H 95 - Problem List & Annotations (1) Hypertensive urgency SNOMED Code(s): 358180508 Code(s): I16.0 - HYPERTENSIVE URGENCY Status: Acute (2) Adverse reaction to DREW inhibitor drug SNOMED Code(s): 043398131 Code(s): T46.4X5A - ADVERSE EFFECT OF LGPFJDDBH-HAVESCB-DESBVW INHIBITORS, INIT Status: Acute Qualifiers: Encounter type: initial encounter Qualified Code(s): T46.4X5A - Adverse effect of ajpgpsrufdd-nokdniyngy-vejegr inhibitors, initial encounter - Assessment/Plan Admission H&P: Please use this note as an admission H&P Assessment:: Hypertensive Urgency Reaction to Drew-inhibitor Plan: Labs all unremarkable. Will stop lisinopril as this could potentially be cause of patient's symptoms. Start losartan tomorrow. Will use PRN Lopressor throughout the night if BP remains elevated. Was given 0.1 mg clonidine in ED. Patent without any focal neurologic deficit. Remains very anxious, but declines anything to help with this. PRN ativan as needed will be ordered to use if patient wishes. Continue to monitor BP closely, although elevated BP has likely been gradual onset. Consult PT for balance assessment/strengthening. Anticipate discharge home 1-2 days pending BP management. Admit to observation with cardiac monitoring. Patient transferred to floor in stable condition.
[2020-11-06] MEDS ORDERED: cloNIDine 0.1 MG Tab PO STA (02:17)
[2020-11-06] MEDS ORDERED: LORazepam 2 MG/ML Syringe IVPUSH PRN (02:54)
[2020-11-06] MEDS ORDERED: Sodium Chloride 0.9% 10 ML Syringe FLUSH PRN (02:54)
[2020-11-06] MEDS ORDERED: Metoprolol Tartrate 5 MG/5 ML SDV IVPUSH PRN (02:54)
[2020-11-06] MEDS ORDERED: Acetaminophen 325 MG Tab PO PRN (02:54)
[2020-11-06] MEDS ORDERED: Aspirin 81 MG Tab.Chew PO SCH (08:00)
[2020-11-06] MEDS ORDERED: Losartan 25 MG Tab PO SCH (12:00)
[2020-11-06] MEDS ORDERED: Enoxaparin 40 MG/0.4 ML Syringe SUBCUT SCH (20:00)
[2020-11-06] MEDS ORDERED: VERAPAMIL 180 MG PO SCH (20:00)
[2020-11-07] MEDS ORDERED: Multivitamin Tab PO SCH (08:00)
--- NOTE | 2020-11-07 18:43 | PCM.DCSUM1 ---
Discharge Summary - Hospital Course HPI Initial Comments: April is a pleasant 89 yo female who presented to the ED with complaints of feeling weak and shaky. She reported that symptoms started around 6 pm prior to coming in. She was in to see her PCP April Kovacs on Thursday and BP was elevated. She was started on lisinopril. Reported she has taken 4 doses and felt it may be a reaction to the medication. Had been feeling fine prior to symptom onset. Upon arrival to the ED patient was quite anxious and had expressed concern that her blood pressure being elevated would cause her to have a stroke. She had no focal neurologic deficit. Denied any chest pain, shortness of breath, nausea, vomiting, diarrhea, urinary symptoms, dizziness upon arrival to ED. Diagnosis: Stroke: No - Discharge Data Discharge Date: 11/06/20 Discharge Disposition: Home, Self-Care 01 Condition: Good - Referral to Home Health Primary Care Physician: April Kovacs PA-C - Discharge Diagnosis/Problem(s) (1) Adverse reaction to GABRIELE inhibitor drug SNOMED Code(s): 103584113 ICD Code: T46.4X5A - ADVERSE EFFECT OF ASCANPWFK-BXGWDVR-XPMKXE INHIBITORS, INIT Status: Acute Qualifiers: Encounter type: initial encounter Qualified Code(s): T46.4X5A - Adverse effect of pkglimydcjj-dagvsclkjb-kudfei inhibitors, initial encounter (2) Hypertensive urgency SNOMED Code(s): 948549714 ICD Code: I16.0 - HYPERTENSIVE URGENCY Status: Acute - Patient Summary/Data Consults: Consultations 11/06/20 02:54 PT Evaluation and Treatment [CONS] Routine - Patient Instructions Diet: Low Sodium Activity: As Tolerated - Discharge Plan *PRESCRIPTION DRUG MONITORING PROGRAM REVIEWED*: Not Applicable *COPY OF PRESCRIPTION DRUG MONITORING REPORT IN PATIENT ILDA: Not Applicable Prescriptions/Med Rec: Losartan [Cozaar] 25 mg PO DAILY #30 tablet Home Medications: Home Meds Aspirin [Esther Chewable Aspirin] 1 tab PO DAILY 07/23/14 [History] Simvastatin [Zocor] 10 mg PO ASDIRECTED 07/23/14 [History] Verapamil [Calan SR] 1 tab PO BEDTIME 07/23/14 [History] Ferrous Sulfate [Iron] 325 mg PO DAILY 11/23/18 [History] Multivitamin [Daily Maninder] 1 tab PO DAILY 11/23/18 [History] Losartan [Cozaar] 25 mg PO DAILY #30 tablet 11/06/20 [Rx] Patient Handouts: Hypertension, Adult, [id number], Managing Your Hypertension Forms: ED Department Discharge Referrals: April Kovacs PA-C [Primary Care Provider] - 11/09/20 PCP,Unknown [Ordering Only Provider] - - Discharge Summary/Plan Comment DC Time >30 min.: Yes Discharge Summary/Plan Comment: Patient to be discharged in satisfactory condition. Consulted with PCP and will start Losartan 25mg daily. D/c Lisinopril. Recheck scheduled with April. Advise patient if any concerns to return sooner. Will resume all other home medications. - General Info Date of Service: 11/06/20 Subjective Update: April is doing well today and states she is feeling back to her normal self. States she would like to go home today. Denies any weakness or being anxious today. States she would like something different for blood pressure than the lisinopril. Denies any problems through out the night. Functional Status: Reports: Tolerating Diet, Ambulating, Urinating. Denies: New Symptoms - Review of Systems General: Reports: No Symptoms Pulmonary: Reports: No Symptoms Cardiovascular: Reports: No Symptoms. Denies: Palpitations, Lightheadedness Gastrointestinal: Reports: No Symptoms Genitourinary: Reports: No Symptoms Musculoskeletal: Reports: No Symptoms Skin: Reports: No Symptoms Neurological: Reports: No Symptoms. Denies: Confusion, Dizziness, Headache, Syncope, Difficulty Walking, Weakness Psychiatric: Reports: No Symptoms - Patient Data Vitals - Most Recent: Last Vital Signs Temp 98 F 11/06/20 08:00 Pulse 89 11/06/20 08:00 Resp 18 11/06/20 08:00 BP 138/78 11/06/20 08:00 Pulse Ox 95 11/06/20 08:00 Weight - Most Recent: 180 lb Med Orders - Current: Current Medications Discontinued Medications Acetaminophen (Acetaminophen 325 Mg Tab) 650 mg PO Q4H PRN PRN Reason: Pain (Mild 1-3)/fever Aspirin (Aspirin 81 Mg Tab.Chew) 81 mg PO DAILY GERRY Last Admin: 11/06/20 08:42 Dose: 81 mg Documented by: Clonidine HCl (Clonidine 0.1 Mg Tab) 0.1 mg PO STAT STA Stop: 11/06/20 02:18 Last Admin: 11/06/20 02:20 Dose: 0.1 mg Documented by: Enoxaparin Sodium (Enoxaparin 40 Mg/0.4 Ml Syringe) 40 mg SUBCUT BEDTIME [facility] Lorazepam (Lorazepam 2 Mg/Ml Syringe) 1 mg IVPUSH Q6H PRN PRN Reason: Anxiety Losartan Potassium (Losartan 25 Mg Tab) 25 mg PO DAILY [facility] Metoprolol Tartrate (Metoprolol Tartrate 5 Mg/5 Ml Sdv) 2.5 mg IVPUSH Q4H PRN PRN Reason: Hypertension Multivitamins/Minerals/Vitamin C (Multivitamin Tab) 1 tab PO DAILY [facility] Sodium Chloride (Sodium Chloride 0.9% 10 Ml Syringe) 10 ml FLUSH ASDIRECTED PRN PRN Reason: Keep Vein Open Verapamil HCl (Verapamil 180 Mg Tab.Er Pt Own) 180 mg PO BEDTIME GERRY - Exam General: Reports: Alert, Oriented, Cooperative, No Acute Distress Neck: Reports: Supple. Denies: Carotid Bruit Lungs: Reports: Clear to Auscultation, Normal Respiratory Effort Cardiovascular: Reports: Regular Rate, Regular Rhythm, No Murmurs GI/Abdominal Exam: Normal Bowel Sounds, Soft, Non-Tender, No Distention, No Mass Extremities: Normal Inspection Skin: Reports: Warm, Dry, Intact Neurological: Reports: No New Focal Deficit Psy/Mental Status: Reports: Alert, Normal Affect, Normal Mood
[2020-11-07] MEDS ORDERED: Enoxaparin 30 MG/0.3 ML Syringe SUBCUT SCH (21:00)
== END 2020-11-06 10:55 | disposition home or self-care (01) ==
LOC: CC.ED 01:30 → CC.MS 02:35 → UNDOADMOB 02:35 → CC.MS 02:37
PROVIDERS: ADMIT Nurse Practitioner Family; ATTEND Family Medicine
DX: I16.0 Hypertensive urgency (principal); R53.1 Weakness; T46.4X5A Adverse effect of angiotensin-converting-enzyme inhibitors, initial encounter; E78.00 Pure hypercholesterolemia, unspecified; Z79.82 Long term (current) use of aspirin; Z79.899 Other long term (current) drug therapy; Z91.013 Allergy to seafood; Z86.73 Personal history of transient ischemic attack (TIA), and cerebral infarction without residual deficits
CPT/HCPCS: 36415; 80053; 81001; 85025; 97161-GP; 99236; 99285; A9270-GY; G0378

== ENCOUNTER 2020-12-06 20:53 | Emergency (ER) | payer MEDICARE, BC ==
[2020-12-06] MEDS: Nitroglycerin Lingual Spray 4.9 GM Canister TRLING PRN ×2 (21:04→21:09)
[2020-12-06 21:18] LABS: CHLORIDE,CL 101 mEq/L (98-106); SODIUM,NA 140 mEq/L (136-145)
[2020-12-06] MEDS ORDERED: Alum Hydrox/Mag Hydrox/Simeth 30 ML, Lidocaine 2% 15 ML PO ONE ×2 (21:24)
--- NOTE | 2020-12-06 21:36 | EDM.PDOC ---
ED HPI GENERAL MEDICAL PROBLEM - General Chief Complaint: Chest Pain Stated Complaint: chest pain Time Seen by Provider: 12/06/20 21:56 Source of Information: Reports: Patient, RN History Limitations: Reports: No Limitations - History of Present Illness INITIAL COMMENTS - FREE TEXT/NARRATIVE: States that after supper tonight which was homemade tomato soup she developed chest pain across the midsternum to her heart as she describes it. Feels pressure. No nausea. Coffee made it worse. NO diaphoresis. Did have some nausea but that subsided. No diarrhea. Had been feeling fine before eating. She was initially given nitro without any relief. Then GI cocktail which did relieve her pain. She states that her BP at home has been good so she doesn't check it as often and her pulse has been stable. Denies any cough or chills. No SOB Onset: Today Location: Reports: Chest Middle Chest Pain Score (Numeric/FACES): 6 - Related Data Allergies Allergy/AdvReac Type Severity Reaction Status Date / Time shellfish derived Allergy Rash Verified 12/06/20 21:25 Home Meds: Home Meds Aspirin [Esther Chewable Aspirin] 1 tab PO DAILY 07/23/14 [History] Simvastatin [Zocor] 10 mg PO ASDIRECTED 07/23/14 [History] Verapamil [Calan SR] 1 tab PO BEDTIME 07/23/14 [History] Ferrous Sulfate [Iron] 325 mg PO DAILY 11/23/18 [History] Multivitamin [Daily Maninder] 1 tab PO DAILY 11/23/18 [History] Past Medical History Cardiovascular History: Reports: High Cholesterol, Hypertension Gastrointestinal History: Reports: GI Bleed Neurological History: Reports: TIA - Past Surgical History GI Surgical History: Reports: Appendectomy Social & Family History - Family History Family Medical History: No Pertinent Family History - Tobacco Use Tobacco Use Status *Q: Never Tobacco User - Caffeine Use Caffeine Use: Reports: Coffee - Recreational Drug Use Recreational Drug Use: No - Living Situation & Occupation Living situation: Reports: , Alone Occupation: Retired ED ROS GENERAL - Review of Systems Review Of Systems: See Below Constitutional: Reports: Weakness. Denies: Fever, Chills HEENT: Reports: No Symptoms Respiratory: Reports: Shortness of Breath Cardiovascular: Reports: Chest Pain. Denies: Edema GI/Abdominal: Reports: Abdominal Pain. Denies: Black Stool, Diarrhea, Nausea, Vomiting Musculoskeletal: Reports: No Symptoms Skin: Reports: No Symptoms Psychiatric: Reports: Anxiety ED EXAM, GENERAL - Physical Exam Exam: See Below Exam Limited By: No Limitations General Appearance: Alert, WD/WN, Mild Distress Ears: Normal External Exam, Normal Canal, Normal TMs Throat/Mouth: Normal Inspection, Normal Oropharynx, Normal Voice Head: Atraumatic, Normocephalic Neck: Normal Inspection, Supple, Non-Tender, Full Range of Motion Respiratory/Chest: No Respiratory Distress, Lungs Clear, Normal Breath Sounds Cardiovascular: Normal Peripheral Pulses, No Edema, Extra Beats GI/Abdominal: Normal Bowel Sounds, Soft, Tender (midepigastric pain initially and then subsided after GI cocktail.) Extremities: Normal Inspection, No Pedal Edema, Normal Capillary Refill Neurological: Alert, Oriented Skin Exam: Warm, Dry Course - Vital Signs Last Recorded V/S: Last Vital Signs Temp 95.8 F L 12/06/20 20:54 Pulse 92 12/06/20 21:47 Resp 18 12/06/20 20:54 BP 142/88 H 12/06/20 21:47 Pulse Ox 95 12/06/20 20:54 - Orders/Labs/Meds Orders: Active Orders 24 hr Category Date Time Status EKG Documentation Completion [RC] STAT Care 12/06/20 20:59 Active Chest 1V Frontal [CR] Stat Exams 12/06/20 20:59 Taken Nitroglycerin [Nitrolingual] Med 12/06/20 21:01 Active 1 gm TRLING ASDIRECTED PRN Medication Orders Nitroglycerin (Nitroglycerin Lingual [place] 4.9 Gm Canister) 1 gm TRLING ASDIRECTED PRN PRN Reason: Chest Pain Last Admin: 12/06/20 21:09 Dose: 1 spray Documented by: Admin: 12/06/20 21:04 Dose: 1 spray Documented by: LJ Labs: Laboratory Tests 12/06/20 12/06/20 12/06/20 Range/Units 21:00 21:00 21:00 WBC 8.3 (5.0-10.0) 10^3/uL RBC 4.45 (4.00-5.50) 10^6/uL Hgb 14.7 (12.0-16.0) g/dL Hct 43.6 (37.0-47.0) % MCV 98.0 H (82.0-94.0) fL MCH 33.0 H (27.0-32.0) pg MCHC 33.7 (33.0-38.0) g/dL RDW Coeff of Mini 13.7 (11.0-15.0) % Plt Count 222 (150-400) 10^3/uL Neut % (Auto) 56.1 (35-85) % Lymph % (Auto) 31.5 (10-55) % [place] % (Auto) 10.4 (0-16) % Eos % (Auto) 1.6 (0-5) % Baso % (Auto) 0.4 (0-3) % Neut # (Auto) 4.68 (1.80-7.00) 10^3/uL Lymph # (Auto) 2.63 (1.00-4.80) 10^3/uL [place] # (Auto) 0.87 H (0.00-0.80) 10^3/uL Eos # (Auto) 0.13 (0.00-0.45) 10^3/uL Baso # (Auto) 0.03 10^3/uL PT 11.0 (9.7-12.3) SEC INR 1.01 (0.92-1.18) APTT 23.3 (23.2-32.3) SEC D-Dimer, Quantitative 0.52 H (0.00-0.50) Sodium 140 (136-145) mEq/L Potassium 4.2 (3.5-5.0) mEq/L Chloride 101 (98-106) mEq/L Carbon Dioxide 28 (21-32) mmol/L BUN 26 H (7-18) mg/dL Creatinine 1.0 (0.6-1.0) mg/dL Est Cr Clr Drug Dosing 30.76 mL/min Estimated GFR (MDRD) 52 L (>=60) mL/min Glucose 165 H D (75-99) mg/dL Calcium 9.9 (8.4-10.1) mg/dL Lactate Dehydrogenase 164 (100-190) U/L Creatine Kinase 86 (21-215) U/L Troponin I < 0.017 (0.00-0.06) ng/mL Meds: Medications Generic Name Dose Route Start Last Admin Trade Name Freq PRN Reason Stop Dose Admin Nitroglycerin 1 gm 12/06/20 21:01 12/06/20 21:09 Nitroglycerin Lingual [place] 4.9 Gm Canister TRLING 1 spray ASDIRECTED PRN Administration Chest Pain Discontinued Medications Generic Name Dose Route Start Last Admin Trade Name Lise PRN Reason Stop Dose Admin Al Hydroxide/Mg Hydroxide 30 0 ml 12/06/20 21:24 12/06/20 21:31 ml/ Lidocaine HCl 15 ml PO 12/06/20 21:25 30 ml ONETIME ONE Administration - Re-Assessments/Exams Free Text/Narrative Re-Assessment/Exam: 12/06/20 21:47 pain is now gone and she still feels weak but wants to go home. BP is stable. Will discharge per pt request. Will discharge with daughter. Departure - Departure Time of Disposition: 21:51 Disposition: Home, Self-Care 01 Condition: Good Clinical Impression: GERD (gastroesophageal reflux disease) Qualifiers: Esophagitis presence: without esophagitis Qualified Code(s): K21.9 - Gastro- esophageal reflux disease without esophagitis Hypertension Qualifiers: Hypertension type: essential hypertension Qualified Code(s): I10 - Essential (primary) hypertension Referrals: April Kovacs PA-C [Primary Care Provider] - Forms: ED Department Discharge Additional Instructions: continue on the same meds as previously. Avoid the high acid foods if possible recheck if pain reoccurs or any new concerns. Sepsis Event Note (ED) - Evaluation Sepsis Screening Result: No Definite Risk - Focused Exam Vital Signs: Vital Signs Temp Pulse Resp BP Pulse Ox 12/06/20 21:47 92 142/88 H 12/06/20 21:33 102 H 144/99 H 12/06/20 21:17 101 H 142/83 H 12/06/20 21:04 100 146/83 H 12/06/20 20:54 95.8 F L 101 H 18 141/93 H 95 - Problem List & Annotations (1) GERD (gastroesophageal reflux disease) SNOMED Code(s): 865151312 Code(s): K21.9 - GASTRO-ESOPHAGEAL REFLUX DISEASE WITHOUT ESOPHAGITIS Status: Acute Priority: High Current Visit: Yes Qualifiers: Esophagitis presence: without esophagitis Qualified Code(s): K21.9 - Gastro-esophageal reflux disease without esophagitis - Problem List Review Problem List Initiated/Reviewed/Updated: Yes - My Orders Last 24 Hours: My Active Orders 12/06/20 20:59 EKG Documentation Completion [RC] STAT Chest 1V Frontal [CR] Stat 12/06/20 21:01 Nitroglycerin [Nitrolingual] 1 gm TRLING ASDIRECTED PRN - Assessment/Plan Last 24 Hours: My Active Orders 12/06/20 20:59 EKG Documentation Completion [RC] STAT Chest 1V Frontal [CR] Stat 12/06/20 21:01 Nitroglycerin [Nitrolingual] 1 gm TRLING ASDIRECTED PRN
[2020-12-06 21:39] LABS: PTT,PARTIAL THROMBOPLSTIN TIME 23.3 SEC (23.2-32.3)
== END 2020-12-06 22:00 | disposition home or self-care (01) ==
LOC: CC.ED 20:53
DX: K21.9 Gastro-esophageal reflux disease without esophagitis (principal); I10 Essential (primary) hypertension; E78.00 Pure hypercholesterolemia, unspecified; Z91.013 Allergy to seafood; Z79.899 Other long term (current) drug therapy
CPT/HCPCS: 36415; 71045; 80048; 82550; 83615; 84484; 85025; 85379; 85610; 85730; 93005; 99283; 99285; A9270; 93010

== ENCOUNTER 2021-07-14 23:58 | Inpatient (IN) | payer MEDICARE, BC ==
[2021-07-15] MEDS ORDERED: Sodium Chloride 0.9% 10 ML Syringe FLUSH PRN (00:02)
--- NOTE | 2021-07-15 00:13 | EDM.PDOC ---
ED HPI GENERAL MEDICAL PROBLEM - General Chief Complaint: General Stated Complaint: diarrhea, weakness Time Seen by Provider: 07/15/21 00:00 Source of Information: Reports: Patient History Limitations: Reports: No Limitations - History of Present Illness INITIAL COMMENTS - FREE TEXT/NARRATIVE: Mrs. Zungia is an 89-year-old female patient that presents to the ER by ambulance. Patient is alert and oriented x4. She states she developed diarrhea this morning and has had diarrhea the rest of the day. States anything that she eats or drinks "runs right through me." She is now feeling weaker. Also complains of some generalized abdominal pain. Denies nausea or vomiting. Denies any blood or black tarry stools. Denies any urgency, frequency, or dysuria. Initially thought that she may have ate something that disagreed with her stomach. Has had a similar episode in the past, but it was quite a few years ago. Also stated that she has had no known exposure to anybody that has been ill. Denies any recent antibiotic use. Onset: Today Onset Date: 07/14/21 Duration: Hour(s): Location: Reports: Abdomen Quality: Reports: Ache Severity: Mild Improves with: Reports: None Worsens with: Reports: None Associated Symptoms: Reports: Other (Diarrhea). Denies: Nausea/Vomiting - Related Data Allergies Allergy/AdvReac Type Severity Reaction Status Date / Time shellfish derived Allergy Rash Verified 12/06/20 21:25 Home Meds: Home Meds Aspirin [Esther Chewable Aspirin] 1 tab PO DAILY 07/23/14 [History] Simvastatin [Zocor] 10 mg PO ASDIRECTED 07/23/14 [History] Verapamil [Calan SR] 1 tab PO BEDTIME 07/23/14 [History] Ferrous Sulfate [Iron] 325 mg PO DAILY 11/23/18 [History] Multivitamin [Daily Maninder] 1 tab PO DAILY 11/23/18 [History] Past Medical History Cardiovascular History: Reports: High Cholesterol, Hypertension Gastrointestinal History: Reports: GI Bleed Neurological History: Reports: TIA - Past Surgical History GI Surgical History: Reports: Appendectomy Social & Family History - Family History Family Medical History: No Pertinent Family History - Caffeine Use Caffeine Use: Reports: Coffee - Living Situation & Occupation Living situation: Reports: , Alone Occupation: Retired ED ROS GENERAL - Review of Systems Review Of Systems: See Below Constitutional: Reports: Weakness. Denies: Fever, Chills HEENT: Reports: No Symptoms Respiratory: Denies: Shortness of Breath, Wheezing, Cough Cardiovascular: Denies: Chest Pain, Syncope Endocrine: Reports: No Symptoms GI/Abdominal: Reports: Abdominal Pain, Diarrhea. Denies: Black Stool, Bloody Stool, Nausea, Vomiting : Denies: Discharge, Dysuria, Frequency, Urgency Musculoskeletal: Reports: No Symptoms Skin: Denies: Cyanosis, Pallor Neurological: Denies: Confusion, Dizziness Psychiatric: Reports: No Symptoms Hematologic/Lymphatic: Reports: No Symptoms Immunologic: Reports: No Symptoms ED EXAM, GENERAL - Physical Exam Exam: See Below Exam Limited By: No Limitations General Appearance: Alert, WD/WN, Mild Distress Ears: Normal External Exam Nose: Normal Inspection, No Blood Throat/Mouth: Normal Inspection, No Airway Compromise Head: Atraumatic, Normocephalic Neck: Normal Inspection, Supple, Non-Tender Respiratory/Chest: No Respiratory Distress, Lungs Clear, Normal Breath Sounds, Chest Non-Tender. No: Crackles, Rales, Rhonchi Cardiovascular: Regular Rate, Rhythm, No Edema GI/Abdominal: Normal Bowel Sounds, Soft, No Distention, Tender (Generalized tenderness in all 4 quadrants) (Female) Exam: Deferred Rectal (Female) Exam: Deferred Extremities: Normal Inspection, No Pedal Edema Neurological: Alert, Oriented, Normal Cognition Psychiatric: Normal Affect, Normal Mood Skin Exam: Warm, Dry, Intact Course - Vital Signs Last Recorded V/S: Last Vital Signs Temp 98 F 07/15/21 00:11 Pulse 94 07/15/21 00:11 Resp 18 07/15/21 00:11 BP 163/102 H 07/15/21 00:11 Pulse Ox 94 L 07/15/21 00:11 - Orders/Labs/Meds Orders: Active Orders 24 hr Category Date Time Status Peripheral IV Care [RC] . DIRECTED Care 07/15/21 00:03 Active CULTURE URINE [RM] Stat Lab 07/15/21 00:30 Stop Req CULTURE URINE [RM] Stat Lab 07/15/21 00:59 Ordered Sodium Chloride 0.9% [Normal Saline] 500 ml Med 07/15/21 00:15 Active IV .BOLUS Sodium Chloride 0.9% [Saline Flush] Med 07/15/21 00:02 Active 10 ml FLUSH ASDIRECTED PRN Peripheral IV Insertion Adult [OM.PC] Urgent Oth 07/15/21 00:02 Ordered Medication Orders Sodium Chloride (Normal Saline) 500 mls @ 1,000 mls/hr IV .BOLUS GERRY Last Admin: 07/15/21 00:17 Dose: 1,000 mls/hr Documented by: HUSEYIN Sodium Chloride (Sodium Chloride 0.9% 10 Ml Syringe) 10 ml FLUSH ASDIRECTED PRN PRN Reason: Keep Vein Open Labs: Laboratory Tests 07/15/21 07/15/21 07/15/21 Range/Units 00:15 00:15 00:30 WBC 7.7 (4.0-11.0) 10^3/uL RBC 4.47 (4.00-5.50) x10^6/uL Hgb 14.1 (12.0-16.0) g/dL Hct 42.2 (37.0-47.0) % MCV 94.4 (83.0-97.0) fL MCH 31.5 (27.0-32.0) pg MCHC 33.4 (32.0-36.0) g/dL RDW Coeff of Mini 13.9 (11.0-15.0) % Plt Count 231 (150-400) 10^3/uL Immature Gran % (Auto) 0.3 (0.0-4.9) % Neut % (Auto) 77.0 H (41-71) % Lymph % (Auto) 11.3 L (24-44) % [place] % (Auto) 10.7 H (0-10) % Eos % (Auto) 0.4 (0-6) % Baso % (Auto) 0.3 (0-1) % Neut # (Auto) 5.92 (1.80-8.00) x10^3/uL Lymph # (Auto) 0.87 (0.60-5.00) 10^3/uL [place] # (Auto) 0.82 (0.00-1.50) 10^3/uL Eos # (Auto) 0.03 (0.00-1.50) 10^3/uL Baso # (Auto) 0.02 (0.00-0.50) 10^3/uL Immature Gran # (Auto) 0.02 (0.00-0.49) 10^3/uL Sodium 141 (136-145) mEq/L Potassium 4.2 (3.5-5.0) mEq/L Chloride 104 (98-106) mEq/L Carbon Dioxide 25 (21-32) mmol/L BUN 18 (7-18) mg/dL Creatinine 1.1 H (0.6-1.0) mg/dL Est Cr Clr Drug Dosing 31.81 mL/min Estimated GFR (MDRD) 47 L (>=60) mL/min Glucose 115 H D (75-99) mg/dL Calcium 9.3 (8.4-10.1) mg/dL Total Bilirubin 0.4 (0.0-1.0) mg/dL AST 21 (15-37) U/L ALT 24 (12-78) U/L Alkaline Phosphatase 77 (46-116) U/L Total Protein 7.2 (6.4-8.2) g/dL Albumin 3.8 (3.4-5.0) g/dL Urine Color Light yellow (YELLOW) Urine Appearance Clear (CLEAR) Urine pH 6.0 (4.5-8.0) Ur Specific [place] 1.010 (1.003-1.020) Urine Protein Negative (NEGATIVE) mg/dL Urine Glucose (UA) Negative (NEGATIVE) mg/dL Urine Ketones Trace H (NEGATIVE) mg/dL Urine Occult Blood Trace-intact H (NEGATIVE) Urine Nitrite Negative (NEGATIVE) Urine Bilirubin Negative (NEGATIVE) Urine Urobilinogen 0.2 (0.2-1.0) EU/dL Ur Leukocyte Esterase Trace H (NEGATIVE) Urine RBC 0-5 (0-5) /HPF Urine WBC 10-20 H (0-5) /HPF Ur Epithelial Cells Few H (NOT SEEN) /HPF Urine Bacteria Few H (NOT SEEN) /HPF Meds: Medications Generic Name Dose Route Start Last Admin Trade Name Freq PRN Reason Stop Dose Admin Sodium Chloride 500 mls @ 1,000 mls/hr 07/15/21 00:15 07/15/21 00:17 Normal Saline IV 1,000 mls/hr .BOLUS GERRY Administration Sodium Chloride 10 ml 07/15/21 00:02 Sodium Chloride 0.9% 10 Ml Syringe FLUSH ASDIRECTED PRN Keep Vein Open Discontinued Medications Generic Name Dose Route Start Last Admin Trade Name Freq PRN Reason Stop Dose Admin Ceftriaxone Sodium 1 gm 07/15/21 00:54 Ceftriaxone 1 Gm Vial IVPUSH 07/15/21 00:55 ONETIME ONE - Re-Assessments/Exams Free Text/Narrative Re-Assessment/Exam: This is an 89 year old female that presented to the ED via EMS. See HPI. Labs were obtained including a CBC, CMP, and UA. CBC and CMP unremarkable. The UA was positive for blood, leukocyte esterase, and bacteria. The urine will be cultured. A 500 ml bolus of NS was ordered and given. The patient has had no diarrhea stools thus far. Plan to admit to observation for UTI and weakness. Will treat the UTI with 1 gram Rocephin and repeat labwork in the morning. Departure - Departure Time of Disposition: 02:13 Disposition: Refer to Observation Condition: Fair Clinical Impression: Weakness UTI (urinary tract infection) Qualifiers: Urinary tract infection type: acute cystitis Hematuria presence: with hematuria Qualified Code(s): N30.01 - Acute cystitis with hematuria - Discharge Information *PRESCRIPTION DRUG MONITORING PROGRAM REVIEWED*: Not Applicable *COPY OF PRESCRIPTION DRUG MONITORING REPORT IN PATIENT ILDA: Not Applicable Forms: ED Department Discharge Sepsis Event Note (ED) - Focused Exam Vital Signs: Vital Signs Temp Pulse Resp BP Pulse Ox 07/15/21 00:11 98 F 94 18 163/102 H 94 L - Problem List & Annotations (1) UTI (urinary tract infection) SNOMED Code(s): 50622489 Code(s): N39.0 - URINARY TRACT INFECTION, SITE NOT SPECIFIED Status: Acute Priority: High Current Visit: Yes Qualifiers: Urinary tract infection type: acute cystitis Hematuria presence: with hematuria Qualified Code(s): N30.01 - Acute cystitis with hematuria (2) Weakness SNOMED Code(s): 47241083 Code(s): R53.1 - WEAKNESS Status: Acute Priority: High Current Visit: Yes - Problem List Review Problem List Initiated/Reviewed/Updated: Yes - My Orders Last 24 Hours: My Active Orders 07/15/21 00:02 Sodium Chloride 0.9% [Saline Flush] 10 ml FLUSH ASDIRECTED PRN Peripheral IV Insertion Adult [OM.PC] Urgent 07/15/21 00:03 Peripheral IV Care [RC] . DIRECTED 07/15/21 00:15 Sodium Chloride 0.9% [Normal Saline] 500 ml IV .BOLUS 07/15/21 00:30 CULTURE URINE [RM] Stat 07/15/21 00:59 CULTURE URINE [RM] Stat - Assessment/Plan Admission H&P: Please use this note as an admission H&P Last 24 Hours: My Active Orders 07/15/21 00:02 Sodium Chloride 0.9% [Saline Flush] 10 ml FLUSH ASDIRECTED PRN Peripheral IV Insertion Adult [OM.PC] Urgent 07/15/21 00:03 Peripheral IV Care [RC] . DIRECTED 07/15/21 00:15 Sodium Chloride 0.9% [Normal Saline] 500 ml IV .BOLUS 07/15/21 00:30 CULTURE URINE [RM] Stat 07/15/21 00:59 CULTURE URINE [RM] Stat Plan: 1. Continue rocephin for treatment of UTI. 2. Monitor for continued diarrhea. 3. PT Referral 4. Repeat labwork CBC, CMP, and CRP.
[2021-07-15] MEDS ORDERED: Sodium Chloride 0.9% 500 ML IV SCH (00:15)
[2021-07-15] MEDS ORDERED: cefTRIAXone 1 GM Vial IVPUSH ONE (00:54)
[2021-07-15] MEDS ORDERED: Ondansetron 4 MG/2 ML SDV IV PRN (02:37)
[2021-07-15] MEDS ORDERED: Enoxaparin 30 MG/0.3 ML Syringe SUBCUT SCH (02:37)
[2021-07-15] MEDS: Acetaminophen 325 MG Tab PO PRN ×2 (06:25→17:42)
[2021-07-15] MEDS ORDERED: Aspirin 81 MG Tab.Chew PO SCH (08:00)
[2021-07-15] MEDS: Aspirin 81 MG Tab.Chew PO SCH (09:24)
--- NOTE | 2021-07-15 13:04 | PN ---
DATE: 07/15/2021 S: Ms. Zuniga is an 89-year-old who lives at home alone next door to her daughter. She, on the morning of admission yesterday developed diarrhea and had it rest of the day, everything was "running through her." Leti Porras evaluated her in our emergency room and at that time had essentially normal lab work, although she may have a UTI. Ana Luisa cultured her urine and started her on antibiotics for possible UTI. The patient did have a stool this morning and it was getting more solid. O: GENERAL: The patient looks and feels better. HEENT: Grossly benign. NECK: Veins are flat. LUNGS: Sounds appear clear. CARDIAC: Tones are regular. ABDOMEN: Soft. She has no flank pain. EXTREMITIES: No peripheral edema. ASSESSMENT: 1. URINARY TRACT INFECTION. 2. DIARRHEA, IMPROVING. 3. WEAKNESS, IMPROVING. P: We will continue with IV antibiotics. We will get a urine culture. Assuming everything goes well, she should be able to get home tomorrow. RENAE/CHICHI /[id number]
[2021-07-15] MEDS ORDERED: VERAPAMIL 180 MG PO SCH (17:30)
[2021-07-15] MEDS: Enoxaparin 40 MG/0.4 ML Syringe SUBCUT SCH (19:24)
[2021-07-15] MEDS ORDERED: Verapamil 180 MG Tab.ER PO SCH (20:00)
[2021-07-15] MEDS ORDERED: cefTRIAXone 1 GM Vial IVPUSH SCH (20:00)
[2021-07-16] MEDS: Aspirin 81 MG Tab.Chew PO SCH (07:35)
[2021-07-16] MEDS: Acetaminophen 325 MG Tab PO PRN ×2 (09:55→19:41)
[2021-07-16] MEDS: Lactated Ringers 1,000 ML IV SCH (10:39)
--- NOTE | 2021-07-16 11:59 | PN ---
DATE: 07/16/2021 S: Ms. Zuniga is an 89-year-old female who was admitted for diarrhea this weekend. Yesterday, she had lesser stools and one was starting to become formed. I do not believe we got stool studies done including the culture and/or C. diff. She was doing better and feeling better but this morning, she feels weaker and did again have two large blowout loose stools. Her urine culture did come back with negative growth on micro. She has not spiked any temps and her vitals have been fine. O: GENERAL: On physical exam, she does not appear in distress. HEENT: Grossly benign. NECK: Her neck is supple. Veins are flat. PULMONARY: Lung sounds are clear. CARDIAC: Tones regular. ABDOMEN: Soft with good bowel sounds. No guarding, rebound, or rigidity. EXTREMITIES: Without edema. ASSESSMENT: 1. DIARRHEA. 2. WEAKNESS. 3. NEGATIVE URINE CULTURE. P: We will start her back on a low rate of LR, get C. diff, and stool cultures today. Her micro came back without any growth on her urine, so we will stop her Rocephin. She is not ready for discharge. She will need to be transferred to acute for poor intake, signs of dehydration and persistent diarrhea. IV fluids will be initiated. RENAE/CHICHI /[id number]
[2021-07-16] MEDS: Verapamil 180 MG Tab.ER PO SCH (16:58)
[2021-07-16] MEDS: Enoxaparin 40 MG/0.4 ML Syringe SUBCUT SCH (19:34)
[2021-07-17] MEDS: Acetaminophen 325 MG Tab PO PRN ×2 (06:56→17:50)
[2021-07-17] MEDS: Lactated Ringers 1,000 ML IV SCH (07:03)
[2021-07-17] MEDS: Aspirin 81 MG Tab.Chew PO SCH (07:28)
[2021-07-17] MEDS ORDERED: Loperamide 2 MG Cap PO PRN (08:28)
--- NOTE | 2021-07-17 16:56 | PCM.PN ---
- General Info Date of Service: 07/17/21 Admission Dx/Problem (Free Text): UTI Weakness Diarrhea Subjective Update: patient admitted for weakness, diarrhea and UTI. Still having loose, frequent stools this am. States feels weak yet but is ambulating well per self to the bathroom per nursing staff. Incontinent of stool this am. has mild cramping. Appetite has been decreased per patient. Was started on IV fluids yesterday due to diarrhea and poor intake. States.is voiding often now. Afebrile. urine culture was negative so IV antibiotics were stopped yesterday. Stool for c diff was negative. Stool culture preliminary result negative. Functional Status: Reports: Pain Controlled, Tolerating Diet, Ambulating - Review of Systems General: Reports: Weakness, Fatigue, Malaise. Denies: Fever HEENT: Denies: Ear Pain, Sinus Congestion, Rhinitis Pulmonary: Denies: Shortness of Breath, Cough Cardiovascular: Denies: Chest Pain, Edema, Lightheadedness Gastrointestinal: Reports: Diarrhea, Other (cramping). Denies: Abdominal Pain, Nausea, Vomiting Genitourinary: Reports: Frequency Musculoskeletal: Reports: No Symptoms Skin: Reports: No Symptoms Neurological: Reports: Weakness - Patient Data Vitals - Most Recent: Last Vital Signs Temp 98.4 F 07/17/21 16:00 Pulse 80 07/17/21 16:00 Resp 12 07/17/21 16:00 BP 122/82 07/17/21 16:00 Pulse Ox 94 L 07/17/21 16:00 Weight - Most Recent: 180 lb I&O - Last 24 Hours: Intake & Output 07/17/21 07/17/21 07/17/21 06:59 14:59 22:59 Intake Total 1000 Balance 1000 Lab Results Last 24 Hours: Laboratory Results - last 24 hr 07/17/21 07/17/21 Range/Units 06:58 06:58 WBC 6.4 (4.0-11.0) 10^3/uL RBC 4.23 (4.00-5.50) x10^6/uL Hgb 13.4 (12.0-16.0) g/dL Hct 40.2 (37.0-47.0) % MCV 95.0 (83.0-97.0) fL MCH 31.7 (27.0-32.0) pg MCHC 33.3 (32.0-36.0) g/dL RDW Coeff of Mini 14.2 (11.0-15.0) % Plt Count 226 (150-400) 10^3/uL Immature Gran % (Auto) 0.6 (0.0-4.9) % Neut % (Auto) 63.9 (41-71) % Lymph % (Auto) 18.6 L (24-44) % [place] % (Auto) 12.7 H (0-10) % Eos % (Auto) 3.7 (0-6) % Baso % (Auto) 0.5 (0-1) % Neut # (Auto) 4.11 (1.80-8.00) x10^3/uL Lymph # (Auto) 1.20 (0.60-5.00) 10^3/uL [place] # (Auto) 0.82 (0.00-1.50) 10^3/uL Eos # (Auto) 0.24 (0.00-1.50) 10^3/uL Baso # (Auto) 0.03 (0.00-0.50) 10^3/uL Immature Gran # (Auto) 0.04 (0.00-0.49) 10^3/uL Sodium 141 (136-145) mEq/L Potassium 4.5 (3.5-5.0) mEq/L Chloride 108 H (98-106) mEq/L Carbon Dioxide 25 (21-32) mmol/L BUN 15 (7-18) mg/dL Creatinine 0.9 (0.6-1.0) mg/dL Est Cr Clr Drug Dosing 38.88 mL/min Estimated GFR (MDRD) 59 L (>=60) mL/min Glucose 92 (75-99) mg/dL Calcium 8.9 (8.4-10.1) mg/dL Total Bilirubin 0.3 (0.0-1.0) mg/dL AST 17 (15-37) U/L ALT 21 (12-78) U/L Alkaline Phosphatase 68 (46-116) U/L Total Protein 6.8 (6.4-8.2) g/dL Albumin 3.4 (3.4-5.0) g/dL Zan Results Last 24 Hours: Microbiology 07/15/21 14:00 Stool Aerobic Culture - Preliminary Stool / Feces 12/14/21 12:00 C. difficile DNA Amplification - Final Stool / Feces NEGATIVE CDIFF BY DNA REFERENCE RANGE: NEGATIVE Med Orders - Current: Current Medications Acetaminophen (Acetaminophen 325 Mg Tab) 650 mg PO Q4H PRN PRN Reason: Pain (Mild 1-3)/fever Last Admin: 07/17/21 06:56 Dose: 650 mg Documented by: Aspirin (Aspirin 81 Mg Tab.Chew) 81 mg PO DAILY [facility] Last Admin: 07/17/21 07:28 Dose: 81 mg Documented by: Enoxaparin Sodium (Enoxaparin 40 Mg/0.4 Ml Syringe) 40 mg SUBCUT BEDTIME [facility] Last Admin: 07/16/21 19:34 Dose: 40 mg Documented by: Sodium Chloride (Normal Saline) 500 mls @ 1,000 mls/hr IV .BOLUS [facility] Last Admin: 07/15/21 00:17 Dose: 1,000 mls/hr Documented by: Loperamide HCl (Loperamide 2 Mg Cap) 2 mg PO Q4H PRN PRN Reason: Diarrhea Last Admin: 07/17/21 08:39 Dose: 2 mg Documented by: Ondansetron HCl (Ondansetron 4 Mg/2 Ml Sdv) 4 mg IV Q4H PRN PRN Reason: Nausea/Vomiting Sodium Chloride (Sodium Chloride 0.9% 10 Ml Syringe) 10 ml FLUSH ASDIRECTED PRN PRN Reason: Keep Vein Open Verapamil HCl (Verapamil 180 Mg Tab.Er) 180 mg PO WITHDINNER [facility] Last Admin: 07/16/21 16:58 Dose: 180 mg Documented by: Discontinued Medications Aspirin (Aspirin 81 Mg Tab.Chew) 81 mg PO DAILY [facility] Ceftriaxone Sodium (Ceftriaxone 1 Gm Vial) 1 gm IVPUSH ONETIME ONE Stop: 07/15/21 00:55 Last Admin: 07/15/21 02:16 Dose: 1 gm Documented by: Ceftriaxone Sodium (Ceftriaxone 1 Gm Vial) 1 gm IVPUSH Q24H [facility] Last Admin: 07/15/21 19:24 Dose: 1 gm Documented by: Enoxaparin Sodium (Enoxaparin 30 Mg/0.3 Ml Syringe) 30 mg SUBCUT Q24H [facility] Lactated Ringer's (Ringers, Lactated) 1,000 mls @ 50 mls/hr IV ASDIRECTED [facility] Last Admin: 07/17/21 07:03 Dose: 50 mls/hr Documented by: Verapamil HCl (Verapamil 180 Mg Tab.Er) 180 mg PO BEDTIME GERRY Verapamil HCl (Verapamil 180 Mg Tab.Er Ptom) 180 mg PO WITHDINNER [facility] Last Admin: 07/15/21 17:40 Dose: 180 mg Documented by: - Exam General: Alert, Oriented HEENT: Mucous Membr. Moist/[place] Neck: Supple Lungs: Clear to Auscultation, Normal Respiratory Effort Cardiovascular: Regular Rate, Regular Rhythm GI/Abdominal Exam: Normal Bowel Sounds, Soft, Non-Tender Extremities: Normal Inspection, No Pedal Edema Skin: Warm, Dry Neurological: No New Focal Deficit - Patient Data Lab Results Last 24 hrs: Laboratory Results - last 24 hr 07/17/21 07/17/21 Range/Units 06:58 06:58 WBC 6.4 (4.0-11.0) 10^3/uL RBC 4.23 (4.00-5.50) x10^6/uL Hgb 13.4 (12.0-16.0) g/dL Hct 40.2 (37.0-47.0) % MCV 95.0 (83.0-97.0) fL MCH 31.7 (27.0-32.0) pg MCHC 33.3 (32.0-36.0) g/dL RDW Coeff of Mini 14.2 (11.0-15.0) % Plt Count 226 (150-400) 10^3/uL Immature Gran % (Auto) 0.6 (0.0-4.9) % Neut % (Auto) 63.9 (41-71) % Lymph % (Auto) 18.6 L (24-44) % [place] % (Auto) 12.7 H (0-10) % Eos % (Auto) 3.7 (0-6) % Baso % (Auto) 0.5 (0-1) % Neut # (Auto) 4.11 (1.80-8.00) x10^3/uL Lymph # (Auto) 1.20 (0.60-5.00) 10^3/uL [place] # (Auto) 0.82 (0.00-1.50) 10^3/uL Eos # (Auto) 0.24 (0.00-1.50) 10^3/uL Baso # (Auto) 0.03 (0.00-0.50) 10^3/uL Immature Gran # (Auto) 0.04 (0.00-0.49) 10^3/uL Sodium 141 (136-145) mEq/L Potassium 4.5 (3.5-5.0) mEq/L Chloride 108 H (98-106) mEq/L Carbon Dioxide 25 (21-32) mmol/L BUN 15 (7-18) mg/dL Creatinine 0.9 (0.6-1.0) mg/dL Est Cr Clr Drug Dosing 38.88 mL/min Estimated GFR (MDRD) 59 L (>=60) mL/min Glucose 92 (75-99) mg/dL Calcium 8.9 (8.4-10.1) mg/dL Total Bilirubin 0.3 (0.0-1.0) mg/dL AST 17 (15-37) U/L ALT 21 (12-78) U/L Alkaline Phosphatase 68 (46-116) U/L Total Protein 6.8 (6.4-8.2) g/dL Albumin 3.4 (3.4-5.0) g/dL Result Diagrams: 07/17/21 06:58 07/17/21 06:58 Zan Results Last 24 hrs: Microbiology 07/15/21 14:00 Stool Aerobic Culture - Preliminary Stool / Feces 07/16/21 12:00 C. difficile DNA Amplification - Final Stool / Feces NEGATIVE CDIFF BY DNA REFERENCE RANGE: NEGATIVE Sepsis Event Note - Evaluation Sepsis Screening Result: No Definite Risk - Focused Exam Vital Signs: Vital Signs Temp Pulse Resp BP Pulse Ox 07/17/21 16:00 98.4 F 80 12 122/82 94 L 07/17/21 12:00 98.6 F 90 16 135/68 94 L 07/17/21 07:43 96.8 F L 80 18 143/86 H 94 L - Problem List & Annotations (1) Diarrhea SNOMED Code(s): 31163875 Code(s): R19.7 - DIARRHEA, UNSPECIFIED Status: Acute Priority: High Current Visit: Yes (2) Weakness SNOMED Code(s): 12226677 Code(s): R53.1 - WEAKNESS Status: Acute Priority: High Current Visit: Yes - Problem List Review Problem List Initiated/Reviewed/Updated: Yes - My Orders Last 24 Hours: My Active Orders 07/17/21 08:28 Loperamide [Imodium] 2 mg PO Q4H PRN - Assessment Assessment:: Weakness Diarrhea - Plan Plan:: IV fluids stopped as has good water/fluid intake. Appetite is improving. Ambulating well with standby assist. Working with PT. Does still feel uncomfortable with plan to discharge home due to incontinent stools today with no family available to help care for her. Will start Immodium today, see if has improvement. Stool cultures are negative. labs are unremarkable. Discussed discharge home tomorrow.
[2021-07-17] MEDS: Verapamil 180 MG Tab.ER PO SCH (17:42)
[2021-07-17] MEDS: Enoxaparin 40 MG/0.4 ML Syringe SUBCUT SCH (19:58)
[2021-07-18] MEDS: Aspirin 81 MG Tab.Chew PO SCH (07:39)
[2021-07-18] MEDS: Acetaminophen 325 MG Tab PO PRN (07:48)
--- NOTE | 2021-07-18 12:38 | DISCH ---
ADMISSION DIAGNOSES: 1. Suspected urinary tract infection. 2. Weakness. 3. Diarrheal illness. DISCHARGE DIAGNOSIS: 1. DIARRHEAL ILLNESS, IMPROVING. 2. WEAKNESS, IMPROVED. HISTORY: The patient presented to the emergency room where Ana Luisa Porras evaluated her at that time. There was a questionable UTI. Because of her weakness and diarrhea, she was admitted to the hospital for IV antibiotics and fluids. At the time she was admitted, her lab work was otherwise normal with a minimally elevated CRP. HOSPITAL COURSE: The patient was started on IV fluids, given Rocephin for UTI. I took over her cares a couple of days later where her urine culture was negative. Her Rocephin was stopped. She continued to have diarrhea and I ordered stool studies including the C diff and culture. Those were negative as well. She was given a few doses of Imodium and over the last 48 hours, she has done extremely well. She is now having minimal diarrhea. In fact, I believe her last stool was reasonably well formed. She has no abdominal pain, has not been spiking any temps. Physical Therapy has been working with her and she has been up and walking without difficulty. She does live at home alone, but family is present at this time. She appears stable for discharge. We are going to discharge her home on her prior cares without any new changes other than Pepto- Bismol on a p.r.n. basis. COMPLICATIONS: During her stay were none. CONSULTATIONS: PT. DISPOSITION: Discharged home. RAVI /[id number]
--- NOTE | 2021-07-19 12:45 | DISCH ---
ADDENDUM: The patient will be admitted to home health for monitoring of oral intakes, weights, vital signs, inability to care for self, strengthening, exercises, etc. Home Health consult was ordered by staff. RAVI /[id number]
== END 2021-07-18 11:00 | disposition home or self-care (01) | DRG 392 ==
LOC: CC.ED 23:58 → SUPCPDRO 23:58 → CC.MS 07-15 02:17 → CC.ED 07-15 02:18 → UNDOADMOB 07-15 02:46 → CC.MS 07-15 02:46 → OBSVTOIN 07-16 10:18
PROVIDERS: ADMIT Physician Assistant Medical; ATTEND Family Medicine
DX: R19.7 Diarrhea, unspecified (principal); E78.00 Pure hypercholesterolemia, unspecified; I10 Essential (primary) hypertension; R53.1 Weakness; Z86.73 Personal history of transient ischemic attack (TIA), and cerebral infarction without residual deficits; Z91.013 Allergy to seafood; Z79.82 Long term (current) use of aspirin; Z79.899 Other long term (current) drug therapy; Z87.19 Personal history of other diseases of the digestive system; Z90.49 Acquired absence of other specified parts of digestive tract
CPT/HCPCS: 36415; 80048; 80053; 81001; 85025; 86140; 87045; 87046; 87086; 87493; 96372; 96374; 96376; 97110-GP; 97161-GP; 99285-25; A9270-GY; G0378; J0696; J1650; J7030; J7120

== ENCOUNTER 2021-10-28 05:55 | Emergency (ER) | payer MEDICARE, BC ==
[2021-10-28] MEDS: Metoprolol Tartrate 5 MG/5 ML SDV IVPUSH ONE (06:44)
[2021-10-28 07:09] LABS: CHLORIDE,CL 103 mEq/L (98-106); SODIUM,NA 142 mEq/L (136-145)
[2021-10-28] MEDS: Nitroglycerin 0.4 MG Tab.SL SL ONE (07:21)
== END 2021-10-28 08:30 | disposition home or self-care (01) ==
LOC: CC.ED 05:55
DX: I16.0 Hypertensive urgency (principal); I10 Essential (primary) hypertension; R53.1 Weakness; E78.00 Pure hypercholesterolemia, unspecified; Z86.73 Personal history of transient ischemic attack (TIA), and cerebral infarction without residual deficits; Z91.013 Allergy to seafood; Z79.82 Long term (current) use of aspirin; Z79.899 Other long term (current) drug therapy
CPT/HCPCS: 36415; 71045; 80053; 81001; 82550; 83615; 83735; 84484; 85025; 85379; 93005; 96374; 99284; 99285-25; A9270-GY; J3490

== ENCOUNTER 2021-11-11 01:17 | Emergency (ER) | payer MEDICARE, BC ==
[2021-11-11] MEDS ORDERED: cloNIDine 0.1 MG Tab PO SCH (01:45)
[2021-11-11 02:14] LABS: CHLORIDE,CL 103 mEq/L (98-106); SODIUM,NA 140 mEq/L (136-145)
== END 2021-11-11 03:16 | disposition home or self-care (01) ==
LOC: CC.ED 01:17
DX: I10 Essential (primary) hypertension (principal); Z91.013 Allergy to seafood
CPT/HCPCS: 36415; 80053; 81001; 84484; 85025; 86140; 93005; 99283-25; 99284; A9270-GY